=== PATIENT | female | born 1980 | race Caucasian/White ===

== ENCOUNTER 2023-02-04 11:55 | Outpatient (REF) | payer MEDICARE, SELFPAY ==
[2023-02-04 19:38] LABS: Abs Immature Grans 0.03 10^3/uL (0.0-0.06); Absolute Basophil Count 0.07 10^3/uL (0.0-0.2); Absolute Eosinophil Count 0.02 10^3/uL (0.0-0.7); Absolute Lymphocyte Count 2.45 10^3/uL (1.2-3.4); Absolute Monocyte Count 0.59 10^3/uL (0.1-0.8); Absolute Neutrophil Count 6.64 10^3/uL (1.2-6.7); Basophils % 0.7; Eosinophils % 0.2; HCT 44.4 % (36.0-46.0); HGB 14.8 g/dL (11.2-15.7); Immature Grans % 0.3; MCH 32.7 pg (27.0-33.0); MCHC 33.3 % (32.0-36.0); MCV 98 fL (80-95); Neutrophils % 67.8; Platelet Count 333 10^3/uL (130-400); RBC 4.53 10^6/uL (3.93-5.22); RDW 13.2 % (11.7-14.6); RDW-SD 47.9 fL
[2023-02-04 21:02] LABS: ALT 25 U/L (14-59); AST 19 U/L (15-37); Alkaline Phosphatase 114 U/L (46-116); Anion Gap 20.7 mmol/L (3-11); BUN 13 mg/dL (7-18); Bilirubin, Total 0.4 mg/dL (0.2-1.0); CO2 14.3 mmol/L (21.0-32.0); CREATININE 0.9 mg/dL (0.55-1.02); Calcium 8.6 mg/dL (8.5-10.1); Chloride 101 mmol/L (98-107); Estimated GFR 80.84 (mL/min/1.73m2); Glucose 86 mg/dL (74-106); Potassium 4.6 mmol/L (3.5-5.1); Sodium 136 mmol/L (136-145); TSH (W/Ref FT4) 1.18 uIU/mL (0.36-3.74); Total Protein 8.1 g/dL (6.4-8.2); Vitamin B12 133 pg/mL (193-986)
== END 2023-02-04 11:56 | disposition home or self-care (01) ==
LOC: NCHCN 11:55
PROVIDERS: PCP Nurse Practitioner Family; Visit Provider Nurse Practitioner Family
DX: R00.0 Tachycardia, unspecified (principal); R42 Dizziness and giddiness; E53.8 Deficiency of other specified B group vitamins
CPT/HCPCS: 80053; 82607; 84443; 85025

== ENCOUNTER 2023-02-18 12:53 | Outpatient (RCR) | payer MEDICARE, SELFPAY ==
--- NOTE | 2023-02-18 13:00 | HOLTER_ITS ---
APPROVED REPORT Conclusion This is a 48-hour Holter monitor, reportedly ordered for dizziness and tachycardia Rhythm throughout is sinus. Average heart rate is 81. Minimum was 60, maximum 142 There were very rare isolated atrial and ventricular ectopic beats There was no atrial fibrillation, no SVT, no high-grade AV block, no pauses greater than 3 seconds Patient symptoms were reported which had no correlation with any dysrhythmia
== END 2023-03-10 23:59 | disposition home or self-care (01) ==
LOC: CARDOPNVT 12:53
PROVIDERS: PCP Nurse Practitioner Family; Visit Provider Nurse Practitioner Family
DX: R00.0 Tachycardia, unspecified (principal); R42 Dizziness and giddiness
CPT/HCPCS: 93227; 93225; 93226

== ENCOUNTER 2023-02-23 17:45 | Emergency (ER) | payer MEDICARE, SELFPAY ==
[2023-02-23] VITALS (39 sets, daily range): BP systolic 108–154; BP diastolic 61–93; PULSE 82–117; RESP 14–29; TEMP 36.9; O2SAT 94–100
--- NOTE | 2023-02-23 18:15 | RT.EKG_ITS ---
APPROVED REPORT Exam: Resting ECG Reason for Exam: SOB Patient Location: E HR:93 bpm ECG Measurements Heart Rate 93 AXIS NM 148 P 30 QRSd 78 QRS 10 QT 343 T 34 QTc 427 Conclusion Sinus rhythm...normal P axis, V-rate 60- [address] segment or T wave abnormalities to suggest occlusive AR
[2023-02-23 18:56] LABS: Abs Immature Grans 0.02 10^3/uL (0.0-0.06); Absolute Basophil Count 0.07 10^3/uL (0.0-0.2); Absolute Eosinophil Count 0.04 10^3/uL (0.0-0.7); Absolute Lymphocyte Count 3.72 10^3/uL (1.2-3.4); Absolute Monocyte Count 0.47 10^3/uL (0.1-0.8); Absolute Neutrophil Count 3.02 10^3/uL (1.2-6.7); Eosinophils % 0.5; HGB 14.2 g/dL (11.2-15.7); Immature Grans % 0.3; Lymphocytes % 50.7; MCH 32.9 pg (27.0-33.0); MCHC 33.8 % (32.0-36.0); MCV 97 fL (80-95); MPV 9.6 fL (8.0-11.0); Monocytes % 6.4; Neutrophils % 41.1; Platelet Count 313 10^3/uL (130-400); RBC 4.31 10^6/uL (3.93-5.22); RDW 12.8 % (11.7-14.6); RDW-SD 45.9 fL; WBC 7.34 10^3/uL (4.4-10.8)
[2023-02-23] MEDS: Lactated Ringers 1,000 ML 1000 ML IV (18:56)
[2023-02-23 19:25] LABS: ALT 21 U/L (14-59); AST 14 U/L (15-37); Albumin 3.5 g/dL (3.4-5.0); Alkaline Phosphatase 92 U/L (46-116); Anion Gap 12.6 mmol/L (3-11); BUN 10 mg/dL (7-18); Bilirubin, Total 0.3 mg/dL (0.2-1.0); CO2 19.4 mmol/L (21.0-32.0); CREATININE 0.9 mg/dL (0.55-1.02); Calcium 8.3 mg/dL (8.5-10.1); Chloride 109 mmol/L (98-107); Estimated GFR 80.84 (mL/min/1.73m2); Glucose 105 mg/dL (74-106); Magnesium 2.1 mg/dL (1.8-2.4); Potassium 4.4 mmol/L (3.5-5.1); Sodium 141 mmol/L (136-145); TSH (W/Ref FT4) 1.03 uIU/mL (0.36-3.74); Total Protein 7.2 g/dL (6.4-8.2)
[2023-02-23 19:27] LABS: ETHANOL BLOOD 335.1 mg/dL (<10); Troponin I < 50 ng/L (<or=60)
--- NOTE | 2023-02-23 19:30 | W.ED.GENAD ---
Discharge Plan Disposition Patient Disposition: Home Condition: Stable Discharge Details Clinical Impression: UTI (urinary tract infection), Alcohol abuse Primary Care Provider: Jaylene Roberts ED Provider: Yakelin Blankenship Home Meds and New Rx's Prescriptions: New cephalexin 500 mg capsule 500 mg PO BID 7 Days Qty: 14 0RF Continued zaleplon [Sonata] 10 MG capsule 1 cap PO HS AEROCHAMBER 1 EACH spacer 1 ea Miscellaneous QID PRNQty: 1 0RF albuterol sulfate 8.5 GM HFA aerosol inhaler 2 puff Inhalation QID PRNQty: 1 cetirizine [Zyrtec] 10 MG tablet,chewable 10 mg PO DAILY Qty: 30 tramadol 50 MG tablet 50 mg PO Q6H PRN clonidine HCl 0.2 MG tablet 2 tab PO DAILY venlafaxine [Effexor XR] 150 MG capsule,extended release 24hr 3 cap PO QAM Discharge Instructions Instructions: Urinary Tract Infection in Women (ED), Abuse of Alcohol (ED) Additional Instructions: Take the antibiotic daily, yogurt daily while on antibiotic Please follow-up with your counselor at your scheduled appointment and can use cane and recovery as a resource Please also follow-up with your primary care physician Should you develop new or worsening complaints, please return immediately to the emergency department for reassessment Referrals: Jaylene Roberts [Primary Care Provider] - Medical Decision Making 42-year-old female, presenting with presyncopal symptoms, blood alcohol notably 335 Alert and oriented x4, cranial nerves II through XII intact, ambulatory with steady gait, pupils equal round reactive to light and accommodation, lungs clear to auscultation cardiac rate rhythm regular, no visible sign of trauma Alert and oriented actually ambulatory with relatively stable gait, vitals stable, initial tachycardia has improved Evidence of urinary tract infection, will treat with antibiotics Cane and recovery offered for alcohol abuse history, appointment with counselor scheduled on the secondary to worsening anxiety, appears dehydrated clinically on exam, able to tolerate juice and crackers, ambulatory with steady gait, will discharge home in the care of her mother Denies any suicidality, long discussion regarding alcohol abuse, patient typically reportedly binge drinks once a week Patient reports marked improvement in symptoms, she feels comfortable discharge home, she is ambulatory with steady gait in the care of her mother Vitals are stable HPI General Date/Time Provider Initiated Documentation: 02/23/23 18:22. HPI Narrative: This 42-year-old female presents with report of presyncopal symptoms for the past several days. States she drinks approximately 3 bottles of wine weekly. Denies any known falls or injuries. States she feels like she might pass out currently which is why she presents. Denies feeling like this in the past. Denies any chance of . Did just start on Lexapro, was told that she may be having anxiety from this per patient. Denies any headache. Related Data Home Medications Medication Instructions Recorded Confirmed venlafaxine 150 mg 3 cap PO QAM 10/12/12 10/12/12 capsule,extended release 24 hr (Effexor XR) zaleplon 10 mg capsule (Sonata) 1 cap PO HS 03/09/13 albuterol sulfate 90 mcg/actuation 2 puff inhalation QID PRN ##1 01/27/14 aerosol inhaler cetirizine 10 mg chewable tablet 10 mg PO DAILY #30 tab-caps 01/27/14 (Zyrtec) clonidine HCl 0.2 mg tablet 2 tab PO DAILY 05/26/14 tramadol 50 mg tablet 50 mg PO Q6H PRN 05/26/14 cephalexin 500 mg capsule 500 mg PO BID 7 days #14 caps 02/23/23 Previous Rx's Medication Instructions Recorded cephalexin 500 mg capsule 500 mg PO BID 7 days #14 caps 02/23/23 Allergies Allergy/AdvReac Type Severity Reaction Status Date / Time morphine Allergy Intermediate Hives / Unverified 05/26/14 11:30 Itching General Stated Complaint: [facility]: 3 PFSH All Active Problems UTI (urinary tract infection) (Acute) Alcohol abuse (Chronic) Surgical History (Updated 05/27/18 @ 14:34 by [facility]) Gastric Bypass (~2006) Tooth extraction WISDOM TEETH REMOVED Social History Smoking/Tobacco Use Status: Former Tobacco Use Smoking risk assessment performed?: Yes Drug use: Never Housing: house Do you feel safe at home: Yes Do you feel safe in your relationship?: Yes Course Vital Signs Vital signs: Vital Signs Temperature 36.9 C 02/23/23 18:08 Pulse 117 H 02/23/23 18:08 Respiratory Rate 18 02/23/23 18:08 Blood Pressure 119/80 02/23/23 18:08 Pulse Oximetry 98 02/23/23 18:08 Temperature 36.9 C 02/23/23 18:08 Temperature Source Oral 02/23/23 18:08 Pulse 117 H 02/23/23 18:08 Respiratory Rate 18 02/23/23 18:08 Respiratory Effort Short of Breath 02/23/23 18:23 Respiratory Depth Normal 02/23/23 18:23 Respiratory Pattern Normal 02/23/23 18:23 Blood Pressure 119/80 02/23/23 18:08 Blood Pressure Position Sitting 02/23/23 18:08 Pulse Oximetry 98 02/23/23 18:08 Oxygen Delivery Method Room Air 02/23/23 18:08 Oxygen Flow Rate 0 02/23/23 18:08 Pain Level 0 02/23/23 18:08 Lab/Test Results Lab/Test Results: Laboratory Tests Range/Units 02/23/23 02/23/23 18:30 18:30 WBC (4.4-10.8) 10^3/uL 7.34 RBC (3.93-5.22) 10^6/uL 4.31 Hgb (11.2-15.7) g/dL 14.2 Hct (36.0-46.0) % 42.0 MCV (80-95) fL 97 H MCH (27.0-33.0) pg 32.9 MCHC (32.0-36.0) % 33.8 RDW (11.7-14.6) % 12.8 Plt Count (130-400) 10^3/uL 313 MPV (8.0-11.0) fL 9.6 Immature Gran % 0.3 Neutrophils % 41.1 Lymphocytes % 50.7 Monocytes % 6.4 Eosinophils % 0.5 Basophils % 1.0 Nucleated RBC % (0.0-0.3) % 0.0 Absolute Neutrophils (1.2-6.7) 10^3/uL 3.02 Absolute Lymphocytes (1.2-3.4) 10^3/uL 3.72 H Absolute Monocytes (0.1-0.8) 10^3/uL 0.47 Absolute Eosinophils (0.0-0.7) 10^3/uL 0.04 Absolute Basophils (0.0-0.2) 10^3/uL 0.07 Sodium (136-145) mmol/L 141 Potassium (3.5-5.1) mmol/L 4.4 Chloride (98-107) mmol/L 109 H Carbon Dioxide (21.0-32.0) mmol/L 19.4 L Anion Gap (3-11) mmol/L 12.6 H BUN (7-18) mg/dL 10 Creatinine (0.55-1.02) mg/dL 0.9 Est GFR (CKD-EPI 2020) (mL/min/1.73m2) 80.84 Glucose (74-106) mg/dL 105 Calcium (8.5-10.1) mg/dL 8.3 L Magnesium (1.8-2.4) mg/dL 2.1 Total Bilirubin (0.2-1.0) mg/dL 0.3 AST (15-37) U/L 14 L ALT (14-59) U/L 21 Alkaline Phosphatase (46-116) U/L 92 Troponin I (<or=60) ng/L < 50 Total Protein (6.4-8.2) g/dL 7.2 Albumin (3.4-5.0) g/dL 3.5 TSH (0.36-3.74) uIU/mL 1.03 Ethyl Alcohol (<10) mg/dL 335.1 H PAWSS Have you Been Recently Intoxicated or Drunk Within the Last 30 days?: No Have you Ever Experienced Previous Episodes of Alcohol Withdrawal?: No Have you ever Experienced Withdrawal Seizures?: No Have you ever Experienced Delirium Tremens(DT)s?: No Have you ever undergone Alcohol Rehabilitation Treatment (i.e, inpt ot outpatient treatment programs)?: No Have you ever Experienced Blackouts?: No Have you ever Combined Alcohol with other Downers within the last 90 days?: No Have you ever Combined Alcohol with any other Substance of Abuse during the last 90 days?: No Positive Blood Alcohol level on Presentation? [PCS.BAL]: No Evidence of Increased Autonomic Activity (i.e. HR>120, tremor, sweating, agitation, nausea)?: No Result: 0
[2023-02-23 20:01] LABS: Bilirubin Negative (Negative); Blood Trace-lysed (Negative); Clarity Clear (Clear); Glucose Negative (Negative); Ketones Negative (Negative); Leukocyte Esterase Small (Negative); Nitrite Positive (Negative); Urobilinogen 0.2 mg/dL (Up to 0.2)
[2023-02-23 20:15] LABS: *AMPHETAMINES SCREEN URINE Negative (Negative); *BARBITURATES SCREEN URINE Negative (Negative); *BENZODIAZEPINES SCREEN URINE Negative (Negative); Cannabinoids THC Negative (Negative); Cocaine Screen,Urine Negative (Negative); METHADONE URINE SCREEN Negative (Negative); OPIATES URINE SCREEN Negative (Negative)
[2023-02-23 20:16] LABS: Bacteria Many HPF (Negative); C & S Indicated? Yes; Casts Negative LPF (Negative); Crystals Negative HPF (Negative); Epithelial Cells Few HPF (Negative); Mucus Negative (Negative); RBC 0-2 HPF (0-2); Tricyclic Antidepressants Negative (Negative); WBC 20-50 HPF (0-5)
[2023-02-23] MEDS: cefTRIAXone 1 GM/50 ML BAG IVPB (20:28)
== END 2023-02-23 22:51 | disposition home or self-care (01) ==
PROVIDERS: Emergency Provider Physician Assistant; PCP Nurse Practitioner Family
DX: N39.0 Urinary tract infection, site not specified (principal); F10.10 Alcohol abuse, uncomplicated
CPT/HCPCS: 36415; 36416; 80053; 80307; 82962; 87077; 93005; 96361; 96365; 99284; 80320; 81003; 81015; 83735; 84443; 84484; 85025; 87086; 87186; 93010; J0696

== ENCOUNTER 2023-04-23 19:10 | Outpatient (REF) | payer MEDICARE, SELFPAY | END 2023-04-23 19:11 | disposition home or self-care (01) | LOC: NCHCN 19:10 | PROVIDERS: PCP Nurse Practitioner Family; Visit Provider Nurse Practitioner Family | DX: N39.0 Urinary tract infection, site not specified (principal); R35.0 Frequency of micturition; R82.79 Other abnormal findings on microbiological examination of urine | CPT/HCPCS: 87077; 87086; 87186 ==

== ENCOUNTER → 2023-05-14 02:04 | Outpatient (CLI) | payer MEDICARE, SELFPAY ==
--- NOTE | 2023-05-14 | DI.MRI_ITS ---
Exam(s) MR LOWER JOINT RT WO EXAM: MR LOWER JOINT RT WO CLINICAL HISTORY: RT KNEE PAIN M25.561 INSTABILITY RT KNEE M25.361 TECHNIQUE: Multiplanar multisequence MRI of the knee was performed. COMPARISON: No exams were available for comparison FINDINGS: EFFUSION: A small knee joint effusion. No Melchor cyst in the popliteal fossa. MARROW:There is no evidence of fracture, bone contusion, nor osteochondral defects.. There are no si gnificant osseous lesions. PATELLOFEMORAL COMPARTMENT: The quadriceps tendon is intact. The patellar ligament is intact. There is motion artifact on the axial fat sat sequence for making evaluation of the retropatellar cartilag e somewhat difficult although does not appear significantly thinned on the other axial sequence.. No obvious osteochondral defect at this level.There is no intraosseous signal to suggest recent hassan lar dislocation. There are no patellar retinacular tears. CRUCIATE LIGAMENTS: The anterior cruciate ligament is intact.The posterior cruciate ligament is intac t. MEDIAL COMPARTMENT/MEDIAL MENISCUS: There is a focal tear in the posterior horn of the medial meniscu s located 1.3 cm in from the otherwise intact meniscalroot. This tear violates the inferior articula r surface of the meniscus. The outer 3rd of the posterior horn appears unremarkable. There is no bu cket-handle configuration. There is no flipped fragment. The anterior horn of the medial meniscus a ppears intact. There is significant articular cartilage thinning over the main weight-bearing surface of the medial femoral condyle with full-thickness thinning over a prominent area and mild amount of subarticular ed emmanuel. No distinct osteochondral defect. There are marginal osteophytes off the inner and outer aspec ts of the medial femoral condyle. No abnormal signal in the medial tibial plateau. MEDIAL COLLATERAL LIGAMENT: Intact LATERAL COMPARTMENT/LATERAL MENISCUS: There is no evidence of lateral meniscal tear.No significant ca rtilage thinning over the lateral femoral condyle. No osteochondral defects. No osteophytes. No ab normal signal in the lateral tibial plateau. ILIOTIBIAL BAND: Intact LATERAL COLLATERAL LIGAMENT COMPLEX: The fibular collateral ligament is intact. The biceps femoris t endon is intact.Popliteus muscle and tendon are intact. IMPRESSION: 1. There is a tear of the posterior horn of the medial meniscus as described above located 1.3 cm lat eral to the root. There is no tear in the anterior horn of the medial meniscus. There are no tears of the lateral meniscus. 2. There is advanced degenerative loss of articular cartilage over the main weight-bearing surface of the medial femoral condyle with mild subarticular edema and marginal osteophytes on inner and outer aspects of the medial condyle. There is no osteochondral defect. There is no significant cartilage loss in the lateral compartment. 3. Cruciate and collateral ligaments are intact. 4. Retropatellar cartilage is somewhat difficult to assess because of motion artifact on the axial im ages but does not appear to be grossly thinned and there is no osteochondral defect at this level. T here is no abnormal intraosseous signal in the patella and patellar retinaculae. 5. There is a small knee joint effusion. No loose intra-articular body seen. There is no Melchor cys t in the popliteal fossa evident. DATA REPOSITORY:
== END ==
PROVIDERS: PCP Nurse Practitioner Family; Visit Provider Nurse Practitioner Family
DX: M23.229 Derangement of posterior horn of medial meniscus due to old tear or injury, unspecified knee (principal); M25.461 Effusion, right knee
CPT/HCPCS: 73721

== ENCOUNTER 2023-07-14 10:45 | Outpatient (CLI) | payer MEDICARE, SELFPAY ==
--- NOTE | 2023-07-14 08:45 | DI.RAD_ITS ---
Exam(s) XR KNEE RT 3V AP,LAT,HARI EXAM: XR KNEE RT 3V AP,LAT,HARI CLINICAL HISTORY: eval R knee pain/OA. TECHNIQUE: 2D digital imaging was performed. Three views. COMPARISON: MR MR LOWER JOINT RT WO from 05/14/2023 FINDINGS: BONES: No acute fracture is present. No bony destructive lesion is seen. Enthesophyte upper pole pa tella. JOINTS: Moderate narrowing of the medial femoral tibial joint space. Mild to moderate periarticular spurring. Mild spurring at the patellofemoral joint. No joint effusion is seen. SOFT TISSUE: Normal. IMPRESSION: Moderate degenerative changes of the medial femoral tibial joint. DATA REPOSITORY: RADIATION DOSE DELIVERED:
--- NOTE | 2023-07-14 08:45 | DI.RAD_ITS ---
Exam(s) XR KNEE LT 3V AP,LAT,HARI EXAM: XR KNEE LT 3V AP,LAT,HARI CLINICAL HISTORY: eval L knee OA. TECHNIQUE: 2D digital imaging was performed. Three views. COMPARISON: CR XR KNEE RT 3V AP,LAT,HARI from 07/14/2023 FINDINGS: BONES: No acute fracture is present. No bony destructive lesion is seen. JOINTS: Mild narrowing medial femoral tibial joint space. Mild to moderate spurring medial femoral t ibial joint. Mild spurring at the patellofemoral joint. No joint effusion is seen. SOFT TISSUE: Normal. IMPRESSION: [id number] degenerative changes. DATA REPOSITORY: RADIATION DOSE DELIVERED:
== END 2023-07-14 10:46 | disposition home or self-care (01) ==
LOC: DIORS 10:45
PROVIDERS: PCP Nurse Practitioner Family; Referring Provider Nurse Practitioner Family
DX: M17.12 Unilateral primary osteoarthritis, left knee (principal); M17.11 Unilateral primary osteoarthritis, right knee
CPT/HCPCS: 20610; 73562; 99214; J1040

== ENCOUNTER 2024-04-01 14:53 | Outpatient (REF) | payer MEDICARE, SELFPAY ==
[2024-04-01 19:29] LABS: Abs Immature Grans 0.02 10^3/uL (0.0-0.06); Absolute Basophil Count 0.03 10^3/uL (0.0-0.2); Absolute Eosinophil Count 0.04 10^3/uL (0.0-0.7); Absolute Lymphocyte Count 1.49 10^3/uL (1.2-3.4); Absolute Monocyte Count 0.48 10^3/uL (0.1-0.8); Absolute Neutrophil Count 3.85 10^3/uL (1.2-6.7); Basophils % 0.5 %; Eosinophils % 0.7 %; HCT 40.4 % (36.0-46.0); HGB 13.3 g/dL (11.2-15.7); Immature Grans % 0.3 %; Lymphocytes % 25.2 %; MCH 31.7 pg (27.0-33.0); MCHC 32.9 % (32.0-36.0); MCV 96 fL (80-95); MPV 10.5 fL (8.0-11.0); Monocytes % 8.1 %; Neutrophils % 65.2 %; Platelet Count 225 10^3/uL (130-400); RBC 4.19 10^6/uL (3.93-5.22); RDW 14.6 % (11.7-14.6); RDW-SD 51.7 fL; WBC 5.91 10^3/uL (4.4-10.8)
[2024-04-01 19:48] LABS: Hemoglobin A1C 5.1 % (<5.7)
[2024-04-01 20:10] LABS: ALT 23 U/L (14-59); AST 15 U/L (15-37); Albumin 3.5 g/dL (3.4-5.0); Alkaline Phosphatase 81 U/L (46-116); Anion Gap 8.9 mmol/L (3-11); BUN 8 mg/dL (7-18); Bilirubin, Total 0.43 mg/dL (0.2-1.0); CO2 25.1 mmol/L (21.0-32.0); CREATININE 0.9 mg/dL (0.55-1.02); Calcium 8.8 mg/dL (8.5-10.1); Chloride 106 mmol/L (98-107); Estimated GFR 79.85 (mL/min/1.73m2); Glucose 97 mg/dL (74-106); Magnesium 1.8 mg/dL (1.8-2.4); Potassium 4.6 mmol/L (3.5-5.1); Sodium 140 mmol/L (136-145); TSH 1.57 uIU/Ml (0.36-3.74); Total Protein 6.5 g/dL (6.4-8.2); Vitamin B12 89 pg/mL (193-986)
[2024-04-01 20:28] LABS: FREE T4 1.22 ng/dL (0.76-1.46)
== END 2024-04-01 14:54 | disposition home or self-care (01) ==
LOC: NCHCN 14:53
PROVIDERS: PCP Nurse Practitioner Family; Visit Provider Nurse Practitioner Family
DX: G44.52 New daily persistent headache (NDPH) (principal); Z68.42 Body mass index [BMI] 45.0-49.9, adult; E53.9 Vitamin B deficiency, unspecified; E66.9 Obesity, unspecified
CPT/HCPCS: 80053; 82607; 83036; 83735; 84439; 84443; 85025

== ENCOUNTER 2024-09-28 16:26 | Outpatient (REF) | payer MEDICARE, SELFPAY ==
[2024-09-28 16:59] LABS: ALT 22 U/L (14-59); AST 18 U/L (15-37); Albumin 3.6 g/dL (3.4-5.0); Alkaline Phosphatase 84 U/L (46-116); Anion Gap 11.1 mmol/L (3-11); BUN 11 mg/dL (7-18); Bilirubin, Total 0.71 mg/dL (0.2-1.0); CO2 22.9 mmol/L (21.0-32.0); CREATININE 0.9 mg/dL (0.55-1.02); Calcium 9.3 mg/dL (8.5-10.1); Chloride 104 mmol/L (98-107); Estimated GFR 79.85 (mL/min/1.73m2); Glucose 116 mg/dL (74-106); Potassium 4.2 mmol/L (3.5-5.1); Sodium 138 mmol/L (136-145); Total Protein 7.2 g/dL (6.4-8.2); Vitamin B12 295 pg/mL (193-986)
== END 2024-09-28 16:27 | disposition home or self-care (01) ==
LOC: NCHCN 16:26
PROVIDERS: PCP Nurse Practitioner Family; Visit Provider Nurse Practitioner Family
DX: E53.8 Deficiency of other specified B group vitamins (principal); I10 Essential (primary) hypertension
CPT/HCPCS: 80053; 82607

== ENCOUNTER → 2024-11-03 13:01 | Outpatient (BNVA) | payer MEDICARE, SELFPAY | PROVIDERS: PCP Nurse Practitioner Family; Referring Provider Nurse Practitioner Family; Visit Provider Student in an Organized Health Care Education/Training Program | DX: M76.61 Achilles tendinitis, right leg (principal); M79.7 Fibromyalgia; Z68.42 Body mass index [BMI] 45.0-49.9, adult | CPT/HCPCS: 99214 ==

== ENCOUNTER → 2025-01-13 10:35 | Outpatient (BNVA) | payer MEDICARE, SELFPAY | PROVIDERS: PCP Nurse Practitioner Family; Referring Provider Nurse Practitioner Family; Visit Provider Podiatrist | DX: M76.61 Achilles tendinitis, right leg (principal); M76.62 Achilles tendinitis, left leg; B07.0 Plantar wart; M79.671 Pain in right foot | CPT/HCPCS: 99214 ==

== ENCOUNTER 2025-01-20 01:07 | Outpatient (CLI) | payer MEDICARE, SELFPAY ==
--- NOTE | 2025-01-20 09:44 | DI.RAD_ITS ---
Exam(s) XR FOOT RT COMPLETE EXAM: XR FOOT RT COMPLETE CLINICAL HISTORY: Achilles tendinitis, rt leg, M76.61,insertional tendinopathy of rt Achilles. TECHNIQUE: 2D digital imaging was performed of the right foot. Three images were obtained. AP, oblique and lateral views were obtained. COMPARISON: There are no priors for comparison. FINDINGS: BONES: No acute fracture is present. No bony destructive lesion is seen. There is a small enthesophyte at the posterior calcaneus. There is a small plantar calcaneal spur. JOINTS: No dislocation present. SOFT TISSUE: Normal. IMPRESSION: Enthesophyte at the posterior calcaneus at the Achilles insertion site. If there is concern for Achilles tendon pathology, an MRI of the ankle should be considered for further evaluation. DATA REPOSITORY: RADIATION DOSE DELIVERED:
--- NOTE | 2025-01-20 09:44 | DI.RAD_ITS ---
Exam(s) XR FOOT LT COMPLETE EXAM: XR FOOT LT COMPLETE CLINICAL HISTORY: comparison views; Achilles tendinitis of MARÍA, M76.62. TECHNIQUE: 2D digital imaging was performed of the left foot. Three images were obtained. AP, oblique and lateral views were obtained. COMPARISON: CR XR FOOT RT COMPLETE from 01/20/2025 FINDINGS: BONES: No acute fracture is present. There is an old healed 5th metatarsal fracture. There is a small enthesophyte at the posterior calcaneus. No destructive changes are seen. JOINTS: No dislocation present. SOFT TISSUE: Normal. IMPRESSION: 1. No acute abnormality. 2. There is a small enthesophyte at the Achilles insertion site on the calcaneus. If there is concern for Achilles tendon pathology, MRI of the ankle should be considered for further evaluation. DATA REPOSITORY: RADIATION DOSE DELIVERED:
== END 2025-01-20 01:27 ==
LOC: DI 01:07
PROVIDERS: PCP Nurse Practitioner Family; Visit Provider Podiatrist
DX: R93.89 Abnormal findings on diagnostic imaging of other specified body structures (principal); M76.61 Achilles tendinitis, right leg
CPT/HCPCS: 73630

== ENCOUNTER → 2025-02-15 09:32 | Outpatient (BNVA) | payer MEDICARE, SELFPAY | PROVIDERS: PCP Nurse Practitioner Family; Referring Provider Nurse Practitioner Family; Visit Provider Podiatrist | DX: M79.671 Pain in right foot (principal); M76.61 Achilles tendinitis, right leg; M76.62 Achilles tendinitis, left leg | CPT/HCPCS: 99213 ==

== ENCOUNTER 2025-05-09 16:03 | Outpatient (REF) | payer MEDICARE, SELFPAY ==
[2025-05-09 17:08] LABS: HCT 39.4 % (36.0-46.0); HGB 12.5 g/dL (11.2-15.7); MCH 29.6 pg (27.0-33.0); MCHC 31.7 % (32.0-36.0); MCV 93 fL (80-95); MPV 10.8 fL (8.0-11.0); Platelet Count 256 10^3/uL (130-400); RBC 4.22 10^6/uL (3.93-5.22); RDW 13.2 % (11.7-14.6); RDW-SD 44.9 fL; WBC 6.34 10^3/uL (4.4-10.8)
[2025-05-09 18:08] LABS: Iron 50 ug/dL (50-170); Total Iron Binding Capacity 383 ug/dL (250-450); Transferrin Sat 13 % (15-50)
[2025-05-09 18:30] LABS: ALT 32 U/L (14-59); AST 18 U/L (15-37); Albumin 3.7 g/dL (3.4-5.0); Alkaline Phosphatase 89 U/L (46-116); Anion Gap 11.3 mmol/L (3-11); BUN 13 mg/dL (7-18); Bilirubin, Total 0.3 mg/dL (0.2-1.0); CO2 23.7 mmol/L (21.0-32.0); Calcium 8.8 mg/dL (8.5-10.1); Chloride 104 mmol/L (98-107); Estimated GFR 107.28 (mL/min/1.73m2); Glucose 83 mg/dL (74-106); Potassium 4.5 mmol/L (3.5-5.1); Sodium 139 mmol/L (136-145); TSH (W/Ref FT4) 1.75 uIU/mL (0.36-3.74); Total Protein 7.0 g/dL (6.4-8.2); Vitamin B12 284 pg/mL (193-986); Vitamin D 25 Total 15 ng/mL (30-100)
== END 2025-05-09 16:04 | disposition home or self-care (01) ==
LOC: NCHCN 16:03
PROVIDERS: PCP Nurse Practitioner Family; Visit Provider Nurse Practitioner Family
DX: N95.1 Menopausal and female climacteric states (principal); F41.9 Anxiety disorder, unspecified; E21.3 Hyperparathyroidism, unspecified
CPT/HCPCS: 80053; 82306; 85027; 82607; 83540; 83550; 83970; 84443

== ENCOUNTER 2025-05-11 03:35 | Outpatient (CLI) | payer MEDICARE, SELFPAY ==
--- NOTE | 2025-05-11 16:16 | DI.MAMMO_ITS ---
Exam(s) MAMMO SCREENING EXAM: MAMMO SCREENING CLINICAL HISTORY: SCREENING, Z12.31, FAMILY H/O BREAST CA (MOTHER) TECHNIQUE: Bilateral full field digital CC and MLO mammographic images were obtained with 3D tomosynthesis and utilizing computer aided detection (CAD). COMPARISON: Comparison is made with prior examinations. FINDINGS: Masses/Architectural Distortion: There is a new 6 mm nodule in the central left breast on the craniocaudad view 6 cm from the nipple. Microcalcifications: No suspicious pleomorphic-type are seen. Skin Thickening/Nipple Retraction: None. IMPRESSION: 1. New 6 mm nodule in the left breast. 2. This area should be further evaluated with a spot compression view. Ultrasound may be indicated at that time. BI-RADS Category 0 - Incomplete: Need additional imaging evaluation Breast Density - Category B - There are scattered areas of fibroglandular density. Breast density Category C or D implies that the patient has dense breast tissue. Dense breast tissue can make it harder to find cancer on a mammogram. Dense breast tissue is also associated with an increased risk of breast cancer. This information about the result of the mammogram report was provided to the patient to raise their awareness. Use this report when you speak with the patient about their risks for breast cancer, which includes their family history. At that time, you may recommend additional screening tests (Ultrasound or MRI) as these tests may add significant information. A negative radiographic report should not delay biopsy if a dominant or clinically suspicious mass is present. Up to ten percent of cancers are not identified on mammography. A negative report may reinforce clinical impression. Adenosis and dense breasts may obscure an underlying neoplasm. False positive reports average 6 to 10%. Patient will receive a letter notifying them of these results.
== END 2025-05-11 03:55 ==
LOC: DI 03:35
PROVIDERS: PCP Nurse Practitioner Family; Visit Provider Nurse Practitioner Family
DX: Z12.31 Encounter for screening mammogram for malignant neoplasm of breast (principal)
CPT/HCPCS: 77063; 77067

== ENCOUNTER 2025-05-23 02:18 | Outpatient (CLI) | payer MEDICARE, SELFPAY ==
--- NOTE | 2025-05-23 10:02 | DI.MAMMO_ITS ---
Exam(s) MAMMO SCREEN CALL BACK UNI EXAM: MAMMO SCREEN CALL BACK UNI CLINICAL HISTORY: F/U ABNL MAMMO, NEW 6 MM NODULE LT BREAST R92.8 TECHNIQUE: Spot compression views with tomographic imaging were performed. COMPARISON: June 04 and 29 May 2017 FINDINGS: No suspicious masses or suspicious microcalcifications are seen. No persistent abnormality is seen on the additional views performed. The findings are consistent with overlying fibroglandular tissue. IMPRESSION: BI-RADS Category 1, Negative Yearly screening mammography is recommended. Breast Density - Category A - The breast are almost entirely fatty. Breast density Category C or D implies that the patient has dense breast tissue. Dense breast tissue can make it harder to find cancer on a mammogram. Dense breast tissue is also associated with an increased risk of breast cancer. This information about the result of the mammogram report was provided to the patient to raise their awareness. Use this report when you speak with the patient about their risks for breast cancer, which includes their family history. At that time, you may recommend additional screening tests (Ultrasound or MRI) as these tests may add significant information. A negative radiographic report should not delay biopsy if a dominant or clinically suspicious mass is present. Up to ten percent of cancers are not identified on mammography. A negative report may reinforce clinical impression. Adenosis and dense breasts may obscure an underlying neoplasm. False positive reports average 6 to 10%. Patient will receive a letter notifying them of these results.
== END 2025-05-23 02:38 ==
LOC: DI 02:18
PROVIDERS: PCP Nurse Practitioner Family; Visit Provider Nurse Practitioner Family
DX: Z12.31 Encounter for screening mammogram for malignant neoplasm of breast (principal); R92.8 Other abnormal and inconclusive findings on diagnostic imaging of breast
CPT/HCPCS: 77063; 77067

== ENCOUNTER 2025-05-31 12:57 | Outpatient (CLI) | payer MEDICARE, SELFPAY ==
[2025-05-31 12:59] LABS: HCT 40.2 % (36.0-46.0); HGB 13.2 g/dL (11.2-15.7); MCH 30.2 pg (27.0-33.0); MCHC 32.8 % (32.0-36.0); MCV 92 fL (80-95); MPV 9.6 fL (8.0-11.0); Platelet Count 335 10^3/uL (130-400); RBC 4.37 10^6/uL (3.93-5.22); RDW 13.2 % (11.7-14.6); RDW-SD 44.7 fL; WBC 7.48 10^3/uL (4.4-10.8)
[2025-05-31 13:13] LABS: Hemoglobin A1C 5.2 % (<5.7)
[2025-05-31 14:12] LABS: Calculated LDL 95 mg/dL (<100); Cholesterol 201 mg/dL (<200); HDL Cholesterol 89 mg/dL (>or=50); TSH (W/Ref FT4) 1.05 uIU/mL (0.36-3.74); Triglyceride 89 mg/dL (<150)
[2025-05-31 22:38] LABS: FSH 81.0 mIU/mL (See Note)
[2025-06-03 13:10] LABS: Estradiol, Mass Spectrometry <10 pg/mL
== END 2025-05-31 12:58 | disposition home or self-care (01) ==
LOC: LBO 12:57
PROVIDERS: PCP Nurse Practitioner Family; Visit Provider Obstetrics & Gynecology
DX: E28.2 Polycystic ovarian syndrome (principal); N93.9 Abnormal uterine and vaginal bleeding, unspecified; N92.3 Ovulation bleeding; R53.83 Other fatigue; Z01.818 Encounter for other preprocedural examination; Z3A.28 28 weeks gestation of pregnancy; Z13.1 Encounter for screening for diabetes mellitus; E78.00 Pure hypercholesterolemia, unspecified
CPT/HCPCS: 36415; 80061; 84403; 85027; 82670; 82679; 83001; 83036; 84443

== ENCOUNTER 2025-07-11 04:13 | Outpatient (CLI) | payer MEDICARE, SELFPAY ==
[2025-07-11 10:22] LABS: HCT 40.5 % (36.0-46.0); HGB 13.2 g/dL (11.2-15.7); MCH 30.1 pg (27.0-33.0); MCHC 32.6 % (32.0-36.0); MCV 92 fL (80-95); MPV 10.2 fL (8.0-11.0); Platelet Count 285 10^3/uL (130-400); RBC 4.39 10^6/uL (3.93-5.22); RDW 13.5 % (11.7-14.6); RDW-SD 46.2 fL; WBC 7.18 10^3/uL (4.4-10.8)
== END 2025-07-11 04:14 | disposition home or self-care (01) ==
LOC: LBO 04:13
PROVIDERS: PCP Nurse Practitioner Family; Visit Provider Obstetrics & Gynecology
DX: Z01.818 Encounter for other preprocedural examination (principal)
CPT/HCPCS: 36415; 85027; 86850; 86900; 86901

== ENCOUNTER 2025-07-13 09:52 | Day surgery (SDC) | payer MEDICARE, SELFPAY ==
--- NOTE | 2025-07-12 16:18 | W.ANESPRE ---
General Info Date of Service Date Performed: 07/13/25 Height: 5 ft 6 in Weight: 131.995 kg Body Mass Index (BMI): 47.0 Surgical Procedure: Operation Date: 07/13/25 10:25 Proposed Procedure Side Surgeon p Dilation & Curettage with Hysteroscopy w/EUA, Pap Smear Julianna Rivera DO s Replacement of IUD-Mirena, Transvaginal Ultrasound Julianna Rivera, Meds Allergies and Home Medications Allergies Allergy/AdvReac Type Severity Reaction Status Date / Time morphine Allergy Intermediate Hives / Verified 07/11/25 12:19 Itching escitalopram Allergy sweaty Verified 07/11/25 12:19 palms jittery Home Medication ?Medication ?Instructions ?Recorded amlodipine 10 mg tablet 10 mg PO DAILY 10/14/24 cyanocobalamin (vitamin B-12) 1,000 mcg IM QWEEK 10/14/24 1,000 mcg/mL injection solution lisinopril 40 mg tablet 40 mg PO DAILY 10/14/24 magnesium oxide 500 mg capsule 500 mg PO DAILY 10/14/24 fluticasone propionate 50 1 inh inhalation DAILY 05/17/25 mcg/actuation blister powder for inhalation levocetirizine 5 mg tablet 5 mg PO DAILY PRN 05/31/25 (Allergy Relief (levocetirizine)) levonorgestrel (Mirena) 1 device intrauterine ONCE 05/31/25 Current Visit Medications: Current Medications Generic Name Dose Route Start Last Admin Trade Name Freq PRN Reason Stop Dose Admin Acetaminophen 1,000 mg 07/13/25 06:00 Acetaminophen 500 Mg Tab PO 07/13/25 16:00 PREOP GONZALO Ringer's Solution 1,000 mls @ 150 mls/hr 07/13/25 06:00 IV 07/13/25 23:59 INFUSION GONZALO Sodium Chloride 0 ml 07/13/25 06:00 Normal Saline Flush 10 Ml Syr IV 07/13/25 23:59 PRN PRN Sodium Chloride 0 ml 07/13/25 06:00 Normal Saline 10 Ml Vial IJ 07/13/25 23:59 DIRECTED PRN Sterile Water 0 ml 07/13/25 06:00 Water,Injection,Sterile 10 Ml Vial IJ 07/13/25 23:59 DIRECTED PRN PFSH Active Problems Active Problems: Problem Status Onset Code Syncope Chronic R55 Insomnia Acute G47.00 Polyneuropathy Acute G62.9 Vitamin B deficiency Acute E53.9 Hyperparathyroidism Acute E21.3 Bilateral hearing loss Acute H91.93 Essential hypertension Acute I10 Achilles tendinitis of left lower extremity Acute M76.62 Insertional tendinopathy of right Achilles tendon Acute M76.61 Localized osteoarthritis of right knee Acute M17.11 Unilateral primary osteoarthritis, left knee Acute M17.12 Primary fibromyalgia syndrome Acute 05/11/12 M79.7 Medical History Medical History (Updated 07/11/25 @ 12:18 by Garrett Cortes) Vitamin D deficiency (05/11/12) Posttraumatic stress disorder (05/11/12) Per pt. 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) Surgical History Surgical History History of wisdom tooth extraction History of lithotripsy Gastric Bypass (~2006) Tooth extraction WISDOM TEETH REMOVED Tobacco Smoking/Tobacco Use Status: Former Tobacco Use Passive smoking exposure: No Alcohol Alcohol Intake: current Alcohol intake frequency: a few times a week Alcohol type: wine Substance Use Substance use: Never Substance use type: does not use Vital Signs and Lab Results Vital Signs Comment Vital Signs Comment:: Temp Pulse Resp BP Pulse Ox 36 C L 82 18 154/90 H 98 07/13/25 10:20 07/13/25 10:20 07/13/25 10:20 07/13/25 10:20 07/13/25 10:20 Lab Results Blood Type / Crossmatch: Antibody Screen NEGATIVE 07/11/25 Complete Blood Count: WBC, (4.4-10.8) 7.18 10^3/uL 07/11/25, 10:10 RBC, (3.93-5.22) 4.39 10^6/uL 07/11/25, 10:10 Hgb, (11.2-15.7) 13.2 g/dL 07/11/25, 10:10 Hct, (36.0-46.0) 40.5 % 07/11/25, 10:10 Plt Count, (130-400) 285 10^3/uL 07/11/25, 10:10 Imaging and Studies Imaging and Studies Study information below may be from another EMR and interpreted by another provider. Please see original notes in EMR for more complete details. EKG Summary: 02/23/23 Reason for Exam: SOB Conclusion Sinus rhythm...normal P axis, V-rate 60- [address] segment or T wave abnormalities to suggest occlusive LA I have reviewed and I agree with the emergency room physician's ECG interpretation Anesthesia Assessment and Plan Anesthesia History Personal History: No History of Anesthesia Complications Family History: No Family History of Anesthesia Complications Exercise Tolerance Exercise Tolerance: Metabolic Equivalents<4 Pertinent Negatives Pertinent Negatives: No Major Cardiovascular Symptoms or Complaints, No Major Pulmonary Symptoms or Complaints and No History of CVA/TIA Cardiac & Pulmonary Exam Cardiac Exam: Normal S1/S2 Heart Sounds Pulmonary Exam: Clear Bilateral Breath Sounds Implantable Cardiac Device Does patient have a Pacemaker or an ICD?: No Airway Exam Known Difficult Airway: No Mallampati Class: 3 Mouth Opening: Normal (> 3cm) Thyromental Distance: Greater than 3 cm Neck Range of Motion: Full ROM Neck Circumference: Thick Teeth Condition: Generalized Poor Dentition, Dental Caries and Other (missing teeth top ) ASA Classification ASA Score: ASA 3 Emergency Case?: No NPO Status NPO Status: NPO Clears >2 hours, Solids >8 hours Status Status: Negative HCG Anesthesia Plan Resuscitation Status: Full Code Anesthesia Technique: General Anesthesia Airway Planned: Endotracheal Tube Monitors Used: Standard Monitors
[2025-07-12 16:21] VITALS: BMI 47.0
[2025-07-13] VITALS (19 sets, daily range): BP systolic 135–165; BP diastolic 56–92; PULSE 54–82; RESP 13–23; TEMP 36–36.4; O2SAT 98–100
--- NOTE | 2025-07-13 06:30 | DI.US_ITS ---
Exam(s) US PELVIS TRANSVAGINAL EXAM: US PELVIS TRANSVAGINAL CLINICAL HISTORY: ABNL UTERINE BLEEDING,N93.9 TECHNIQUE: Ultrasound of the pelvis was performed both transabdominal and transvaginal. Images were performed in the operating room with the patient sedated. COMPARISON: US US [facility] RT from 10/04/2024 FINDINGS: UTERUS: Nongravid and anteverted Measures 6 cm length x 3.2 cm AP x 3.9 cm wide. There are no uterine fibroids.There is an IUD in the endometrial canal which appears to be in satisfactory position with the superior aspect of the IUD at the level the uterine fundus Endometrial thickness measures 3 mm. There is no fluid in the endometrial canal. CERVIX: There are no obvious nabothian cysts. RIGHT OVARY: Measures 2.5 x 1.6 x 1.4 cm No significant cysts nor masses evident in the right ovary. LEFT OVARY: Measures 4.4 x 2.4 x 2.3 cm No significant cysts nor masses evident in the left ovary. CUL-DE-SAC: There is a tiny amount of free fluid in the right adnexa IMPRESSION: 1. There is an IUD in the endometrial canal. The superior aspect of the IUD is at the fundus level of the endometrium (satisfactory position). There are no uterine fibroids 2. No abnormal ovarian findings. No extraovarian adnexal masses. 3. There is a tiny amount of free fluid in the right adnexa. DATA REPOSITORY:
[2025-07-13] MEDS: Acetaminophen 500 MG TAB 1000 MG PO (10:43)
[2025-07-13] MEDS: Lactated Ringers 1,000 ML 150 ML IV (10:50)
--- NOTE | 2025-07-13 13:35 | ROE_ITS ---
Operative Note Operative Note PRE-OP DIAGNOSIS: Abnormal uterine bleeding POST-OP DIAGNOSIS: same PROCEDURE: Hysteroscopic dilation and curettage with exam under anesthesia, transvaginal and transabdominal ultrasound, and pap smear. SURGEON: Julianna Rivera ANESTHESIA TYPE: MAC Refer to Anesthesia Record ESTIMATED BLOOD LOSS: 5 PATHOLOGY: other (endometrial curettings) COMPLICATIONS: None Patient was transported to: PACU Patient's condition: stable Indications: Abnormal uterine bleeding Findings: Notably narrow vaginal introitus and passage. Unrenarmarkable cervix. Anteverted and anteflexed uterus. Small rent in the posterior wall of the endometrium; does not communicate through to serosa. Procedure Description: Patient was taken to the OR with IV fluids running. Antibiotic prophylaxis was not indicated. [place] anesthesia was established, and patient was positioned with her legs up in yellowfin stirrups into a modified dorsolithotomy position. A timeout was performed and the patient as well as procedure were confirmed.DI presented to OR and performed a transabdominal and transvaginal ultrasound; the bladder was straight catherized immediately prior to transvaginal ultrasound. Following the ultrasound, the old Mirena IUD was removed, and a pap smear was collected. Then, the vagina and pelvis were prepped with Betadine. Side loading speculum was used to visualize the cervix. Anterior lip was grasped with a single-tooth tenaculum. The cervix was progressively dilated up to a 16 mm [place] Yuan dilator. Hysteroscopy revealed the above findings; pictures were taken and sent to the chart. Curettings were collected onto a Telfa with careful attention to appreciate the anatomy of the uterus and sent for pathology. Attempts to place the IUD were done under ultrasound guidance (assisted by Dr. Cardona). However, despite several attempts, I was unable to get the Mirena administration device past the posterior rent. Therefore, placement of the new IUD was aborted. The single-tooth tenaculum was then removed from the cervix, and good hemostasis was appreciated. The patient sandro rated the procedure well, and was taken to PACU in good condition. Date of Procedure: 07/13/25
--- NOTE | 2025-07-13 14:17 | W.ANESPOSTOP ---
Postoperative Evaluation Date, Time and Location Date Performed: 07/13/25 Time Performed: 14:10 Patient Location: Day Surgery Unit Vital Signs Most Recent Imported Vital Signs: Most Recent Vital Signs Temp Pulse Resp BP Pulse Ox 36.3 C L 58 L 18 153/68 H 100 07/13/25 14:05 07/13/25 14:05 07/13/25 14:05 07/13/25 14:05 07/13/25 14:05 Pain Score Most Recent Pain Score: Most Recent Pain Score Pain Level 0 07/13/25 14:05 Assessment Mental Status: Awake (Alert & Oriented to Patient Baseline) Airway and Respiratory Function: Patent airway with normal (patient baseline) respiratory exam Cardiovascular Function: Hemodynamically Stable Hydration Status: Adequately Hydrated Nausea & Vomiting: No Nausea or Vomiting Pain: Pain is tolerable per patient Peripheral Nerve Block: Patient did not receive a nerve block
[2025-07-14 12:16] LABS: Chlamydia Result Negative (Negative); GC Result Negative (Negative)
== END 2025-07-13 15:00 | disposition home or self-care (01) ==
PROVIDERS: PCP Nurse Practitioner Family; Visit Provider Obstetrics & Gynecology
PROC: 0UDB8ZZ Extraction of Endometrium, Via Natural or Artificial Opening Endoscopic (ICD-10-PCS; CPT 58558; principal; 2025-07-13 10:15)
PROC: (CPT 58563; 2025-07-13 10:15)
DX: N93.9 Abnormal uterine and vaginal bleeding, unspecified (principal); Z30.432 Encounter for removal of intrauterine contraceptive device
CPT/HCPCS: 58563; 58301; 81025; 87491; 87591; 88142; 88305; 76830; 76856; 87624; J1100; J1171; J1885; J2003; J2250; J2371; J2405; J2704; J3475